=== PATIENT | female | born 1965 | race Caucasian/White ===

== ENCOUNTER → 2025-08-30 14:03 | Outpatient (CLI) | payer OTHER, SELFPAY ==
[2025-08-30 19:24] LABS: Hematocrit 43.5 % (36-46); Hemoglobin 14.7 g/dL (12.0-16.0); Mean Corpuscular HGB Conc 33.9 % (30-36); Mean Corpuscular Hemoglobin 33.1 PG (26-34); Mean Corpuscular Volume 97.9 fL (80-100); Platelet Count 209 X10^3/uL (150-400)
[2025-08-30 19:35] LABS: Alanine Aminotransferase 22 IU/L (<35); Albumin 4.5 g/dL (3.5-5.0); Albumin Globulin Ratio 1.5 (1.0-2.8); Alkaline Phosphatase 67 U/L (38-126); Blood Urea Nitrogen 13 mg/dL (7-17); Calcium 9.6 mg/dL (8.4-10.2); Carbon Dioxide 29 mmol/L (22-32); Chloride 102 mmol/L (98-107); Cholesterol 202 mg/dL (140-199); Estimated Glomerular Filt Rate > 60 mL/min (>60); Globulin 3.0 g/dL (1.7-4.1); Glucose 89 mg/dL (70-99); HDL Cholesterol 99 mg/dL (40-60); HEMOLYSIS < 15 (0-50); Potassium 4.1 mmol/L (3.4-5.1); Sodium 137 mmol/L (137-145); Total Protein 7.5 g/dL (6.3-8.2); Triglycerides 39 mg/dL (35-150)
[2025-08-30 20:00] LABS: Thyroid Stimulating Hormone 2.80 uIU/mL (0.47-4.68)
[2025-09-03 20:36] LABS: Estradiol, Sensitive 48.5 pg/mL (.)
== END ==
PROVIDERS: PCP Family Medicine; Visit Provider Family Medicine
DX: M85.80 Other specified disorders of bone density and structure, unspecified site (principal); I48.0 Paroxysmal atrial fibrillation; Z79.890 Hormone replacement therapy; Z13.0 Encounter for screening for diseases of the blood and blood-forming organs and certain disorders involving the immune mechanism; Z13.1 Encounter for screening for diabetes mellitus
CPT/HCPCS: 80053; 80061; 82670; 84443; 85027

== ENCOUNTER → 2025-10-08 13:06 | Outpatient (CLI) | payer OTHER, SELFPAY | PROVIDERS: PCP Family Medicine; Referring Provider Family Medicine; Visit Provider Family Medicine | DX: M85.80 Other specified disorders of bone density and structure, unspecified site (principal); E28.39 Other primary ovarian failure | CPT/HCPCS: 82670 ==